=== PATIENT | female | born 1960 | race Caucasian/White ===

== ENCOUNTER 2019-01-20 09:57 | Emergency (ER) | payer OTHER ==
[~2019-01-20] VITALS: Ht 154.9 cm; Wt 89.8 kg
[2019-01-20] MEDS ORDERED: ALBUTEROL2.5 MG/3 M INH (10:07)
[2019-01-20] MEDS ORDERED: CLEOCIN HCL150 MG PO (12:28)
== END 2019-01-20 13:00 | disposition home or self-care (01) ==
LOC: ED 09:57
DX: L03.211 Cellulitis of face (principal); Z87.891 Personal history of nicotine dependence
CPT/HCPCS: 70470; 80053; 85025; 99283-25; J1885; J7030; Q9967